=== PATIENT | male | born 1995 | race Caucasian/White ===

== ENCOUNTER 2024-01-08 03:45 | Emergency (ER) | payer BC, MEDICAID ==
[2024-01-08] MEDS ORDERED: Sodium Chloride 0.9% 10 ML Syringe FLUSH PRN (04:52)
[2024-01-08] MEDS: HYDROmorphone 0.5 MG/0.5 ML Syringe IVPUSH ONE (04:57)
== END 2024-01-08 05:32 | disposition short-term general hospital (02) ==
LOC: VM.ED 03:45
DX: S82.252A Displaced comminuted fracture of shaft of left tibia, initial encounter for closed fracture (principal); S82.445A Nondisplaced spiral fracture of shaft of left fibula, initial encounter for closed fracture; W17.89XA Other fall from one level to another, initial encounter
CPT/HCPCS: 29515; 73590-LT; 73610-LT; 96374; 99283; 99284-25; J1170